=== PATIENT | male | born 1975 | race Caucasian/White ===

== ENCOUNTER 2016-08-23 11:56 | Emergency (ER) | payer BC ==
[~2016-08-23] VITALS: Ht 180.3 cm; Wt 89.2 kg
[~2016-08-23 11:56] MED LIST: IBUP-238 PO; LEVEMIR SQ; NOVORP2 SQ; OCUF0.3D OS
[2016-08-23 11:59] VITALS: BP 133/78; PULSE 89; RESP 16; TEMP 98.8; O2SAT 98
[2016-08-23] MEDS ORDERED: INSU100V2 SQ (12:08)
[2016-08-23] MEDS ORDERED: AMOX875T2 PO (12:08)
[2016-08-23] MEDS ORDERED: OCUF0.3D EACH EAR (12:26)
[2016-08-23] MEDS ORDERED: OFLOXACIN 0.3% OPTH SOLN 5 ML BTL EACH EAR SCH (12:30)
--- NOTE | 2016-08-23 12:36 | PD ---
HPI Chief Complaint: ENT Complaint Time Seen by Provider: 12:25 Travel History International Travel<30 days: No Contact w/Intl Traveler<30days: No Traveled to known affect area: No History of Present Illness HPI 41 year-old male presents to the emergency room for evaluation of bilateral ear pain, left worse than right. Patient states pain started 5 days ago. Reports ear swelling and decreased hearing but denies drainage. He went to his primary care physician yesterday and was prescribed Augmentin for a "upper respiratory infection" but states it seems to be worse since then. He denies any associated upper respiratory symptoms. Patient reports associated chills and night sweats off-and-on for the past 3 days. He has been taking ibuprofen for pain and fever. Denies recent swimming. PFSH Past Medical History Hx Anticoagulant Therapy: Yes (81 MG ASA) Cancer: No Cardiovascular Problems: No High Cholesterol: Yes Chest Pain: Yes Diabetes: Yes (TYPE 1 ) Patient Takes Glucophage: No Diminished Hearing: No Endocrine: Yes Gastrointestinal Disorders: No Genitourinary: No Immune Disorder: No Inguinal Hernia: Yes Implanted Vascular Access Dvce: No Medical other: Yes (NARCOLEPSY) Musculoskeletal: No Neurologic: Yes Reproductive: No Respiratory: No Past Surgical History Other Surgery: Yes Social History Alcohol Use: Yes (rarely) Tobacco Use: Yes (1 ppd) Substance Use: No Allergies-Medications (Allergen,Severity, Reaction): Coded Allergies: No Known Allergies (Verified , 08/23/16) Reported Meds & Prescriptions Reported Meds & Active Scripts Active Reported Amoxicillin-Clavulanate 875-125 mg Tab 875 Mg PO BID not for use in CrCl <30 mL/minute Humulin R Inj (Insulin Human Regular) 1,000 Unit/10 Ml Vial 1 Units SQ ONCE Review of Systems Except as stated in HPI: all other systems reviewed are Neg Physical Exam Narrative GENERAL: Well-nourished, well-developed male in no acute distress. Afebrile. Ambulatory. SKIN: Warm and dry. HEAD: Normocephalic. EYES: No scleral icterus. No injection or drainage. NECK: Supple, trachea midline. No JVD or lymphadenopathy. EARS: Bilateral pinnae within normal limits. Bilateral external ear canals are erythematous and occluded with purulent drainage. Tympanic membranes not visible. Data Data Last Documented VS Vital Signs Date Time Temp Pulse Resp B/P Pulse Ox O2 Delivery O2 Flow Rate FiO2 08/23/16 11:59 98.8 89 16 133/78 98 Orders Ofloxacin 0.3% Opth Nickyn (Ocuflox 0.3% O (08/23/16 12:30) [facility] Medical Decision Making Medical Screen Exam Complete: Yes Emergency Medical Condition: Yes Medical Record Reviewed: Yes Differential Diagnosis Otitis media versus otitis externa versus eustachian tube dysfunction Narrative Course 41-year-old male presents to the emergency room for evaluation of bilateral ear pain and swelling that started last night. Patient has had ear pain for 5 days. Went to his primary care physician and was diagnosed with upper respiratory infection and given prescription of Augmentin. He has had 2 doses and feels worse today. Denies ear drainage or recent swimming. Physical exam reveals bilateral external ear canals are erythematous and occluded with purulent drainage. Tympanic membranes not visible. Some drainage was removed and ear kit were placed. Patient given his first dose of medication in the emergency room to assist with retaining kit. Discharged with prescription for ofloxacin and told to follow up with primary care physician or ENT if symptoms persist or return to the emergency room for worsening symptoms. He understands and agrees to plan. Diagnosis Primary Impression: OE (otitis externa) Qualified Code: H60.393 - Other infective acute otitis externa of both ears Referrals: Primary Care Physician Patient Instructions: General Instructions, Otitis Externa (ED) Additional Instructions: Rest and drink plenty of fluids. Use ofloxacin as directed, for 7 days. Ibuprofen as directed, as needed for pain. Kit should be replaced every 1-3 days if significant swelling persists. They can be purchased [id number]. The ear should be protected from water during showers during recovery from external otitis. No swimming. Follow-up with primary care physician and/or ENT. Return for worsening symptoms. Deanna Monet Aug 23, 2016 12:36
== END 2016-08-23 13:07 | disposition home or self-care (01) ==
LOC: PHEFT 11:56
DX: H60.93 Unspecified otitis externa, bilateral (principal); E10.9 Type 1 diabetes mellitus without complications; F17.210 Nicotine dependence, cigarettes, uncomplicated; Z79.82 Long term (current) use of aspirin; E78.00 Pure hypercholesterolemia, unspecified; Z79.4 Long term (current) use of insulin
CPT/HCPCS: 99283

== ENCOUNTER 2016-10-31 22:42 | Emergency (ER) | payer BC ==
[~2016-10-31] VITALS: Ht 180.3 cm; Wt 91.6 kg
[~2016-10-31 22:42] MED LIST changes: +AMOX875T2 PO; -IBUP-238 PO; +INSU100V2 SQ; -LEVEMIR SQ; -NOVORP2 SQ; +OCUF0.3D EACH EAR; -OCUF0.3D OS
[2016-10-31 22:49] VITALS: BP 125/85; PULSE 98; RESP 20; TEMP 98.9; O2SAT 97
[2016-10-31] MEDS ORDERED: IBUP800T23 PO (23:12)
[2016-10-31] MEDS ORDERED: CYCL5TAB PO (23:12)
[2016-10-31] MEDS ORDERED: oxyCODONE/ACETAMINOPHEN 5 MG/325 MG TAB PO ONE (23:15)
--- NOTE | 2016-10-31 23:17 | PD ---
HPI Chief Complaint: Musculoskeletal Complaint Time Seen by Provider: 23:02 Travel History International Travel<30 days: No Contact w/Intl Traveler<30days: No Traveled to known affect area: No History of Present Illness HPI This 41-year-old male is complaining of back pain. He says he been having back pain for several months but seems worse last week. Pain does go down his legs at times, gone down both sides. He had a back injury at the age of 15 but nothing recently. He has a history of diabetes for the last 3 years and does have some neuropathy. Pain is aggravated by standing. PFSH Past Medical History Hx Anticoagulant Therapy: Yes (81 MG ASA) Cancer: No Cardiovascular Problems: No High Cholesterol: Yes Chest Pain: Yes Diabetes: Yes (TYPE 1 ) Diminished Hearing: No Endocrine: Yes Gastrointestinal Disorders: No Genitourinary: No Immune Disorder: No Inguinal Hernia: Yes Implanted Vascular Access Dvce: No Musculoskeletal: No Neurologic: Yes Reproductive: No Respiratory: No ?: Not Past Surgical History Other Surgery: Yes Social History Alcohol Use: Yes (rarely) Tobacco Use: Yes (1 ppd) Substance Use: No Allergies-Medications (Allergen,Severity, Reaction): Coded Allergies: No Known Allergies (Verified , 10/31/16) Reported Meds & Prescriptions Reported Meds & Active Scripts Active Flexeril (Cyclobenzaprine HCl) 10 Mg Tab 10 Mg PO TID Reported Flexeril (Cyclobenzaprine HCl) 5 Mg Tab 5 Mg PO TID Ibuprofen 800 Mg Tab 800 Mg PO Q6HR PRN Humulin R Inj (Insulin Human Regular) 1,000 Unit/10 Ml Vial 1 Units SQ ONCE Review of Systems General / Constitutional: No: Fever, Chills Eyes: No: Diploplia, Blurred Vision HENT: No: Headaches, Vertigo Cardiovascular: No: Chest Pain or Discomfort, Palpitations Respiratory: No: Cough Gastrointestinal: No: Nausea, Vomiting Genitourinary: No: Urgency, Frequency Musculoskeletal: Positive: Myalgias, Pain Skin: No Rash, No Itching Neurologic: Positive: Weakness, No: Dizziness Psychiatric: No: Anxiety Physical Exam Narrative GENERAL: Well-developed male SKIN: Warm and dry. HEAD: Atraumatic. Normocephalic. EYES: Pupils equal and round. No scleral icterus. No injection or drainage. ENT: No nasal bleeding or discharge. Mucous membranes pink and moist. NECK: Trachea midline. No JVD. CARDIOVASCULAR: Regular rate and rhythm. No murmur appreciated. RESPIRATORY: No accessory muscle use. Clear to auscultation. Breath sounds equal bilaterally. GASTROINTESTINAL: Abdomen soft, non-tender, nondistended. Hepatic and splenic margins not palpable. MUSCULOSKELETAL: No obvious deformities. No clubbing. No cyanosis. No edema. Does have some tenderness in the low back in the midline. Straight leg raising is painful bilaterally. He does have good strength in plantar and dorsiflexion. Sensation appears grossly intact NEUROLOGICAL: Awake and alert. No obvious cranial nerve deficits. Motor grossly within normal limits. Normal speech. PSYCHIATRIC: Appropriate mood and affect; insight and judgment normal. Data Data Last Documented VS Vital Signs Date Time Temp Pulse Resp B/P Pulse Ox O2 Delivery O2 Flow Rate FiO2 10/31/16 22:49 98.9 98 20 125/[address] Lumb Spine W/O Contrast (10/31/16 23:14) Oxycodone-Acetamin 5-325 Mg (Percocet (10/31/16 23:15) MDM Medical Decision Making Medical Screen Exam Complete: Yes Emergency Medical Condition: Yes Medical Record Reviewed: Yes Differential Diagnosis Differential includes spinal stenosis, HNP, musculoskeletal pain Narrative Course CT scan was obtained and the bones appear normal. There is no evidence of infection. Patient will be released with a prescription for Flexeri Diagnosis Primary Impression: Back pain Scripts Cyclobenzaprine (Flexeril)10 Mg Tab10 Mg PO TID #30 TAB Ref 0 Prov:Damian Lei MD 10/31/16 Disposition: DISCHARGE HOME Condition: Stable Damian Lei MD Oct 31, 2016 23:17
[2016-10-31] MEDS ORDERED: CYCL1TAB29 PO (23:50)
--- NOTE | 2016-11-01 00:16 | RADHPO ---
EXAM DATE/TIME: 10/31/2016 23:25 [facility] COMPARISON: No previous studies available for comparison. INDICATIONS : Lower back pain for several months. RADIATION DOSE: 38.24 CTDIvol (mGy) MEDICAL HISTORY : Hernia, inguinal. Diabetes mellitus type 1. SURGICAL HISTORY : None. ENCOUNTER: Initial ACUITY: 3 months PAIN SCALE: 6/10 LOCATION: lower back. TECHNIQUE: Volumetric scanning of the lumbar spine was performed. Multiplanar reconstructions in the sagittal, coronal and oblique axial planes were performed. Using automated exposure control and adjustment of the mA and/or kV according to patient size, radiation dose was kept as low as reasonably achievable t o obtain optimal diagnostic quality images. FINDINGS: VERTEBRAE: Normal vertebral body height. ALIGNMENT: No evidence of subluxation. T12-L1: The thecal sac has a normal diameter. No evidence of disc bulge or protrusion. The neural foramina are patent bilaterally. L1-L2: The thecal sac has a normal diameter. No evidence of disc bulge or protrusion. The neural foramina are patent bilaterally. L2-L3: The thecal sac has a normal diameter. No evidence of disc bulge or protrusion. The neural foramina are patent bilaterally. L3-L4: The thecal sac has a normal diameter. No evidence of disc bulge or protrusion. The neural foramina are patent bilaterally. L4-L5: There is a mild broad-based disc bulge. Central canal, lateral recesses, and neural foramen are paten t. L5-S1: The thecal sac has a normal diameter. No evidence of disc bulge or protrusion. The neural foramina are patent bilaterally. CONCLUSION: 1. No acute abnormality. 2. Mild degenerative disc disease at L4-L5 without neural impingement. Josue Egan Jr., MD on November 01, 2016 at 0:12 Board Certified Radiologist. This report was verified electronically.
[2016-11-01 00:40] VITALS: BP_SYST 169
== END 2016-11-01 00:42 | disposition home or self-care (01) ==
LOC: PHED 22:42
DX: M54.9 Dorsalgia, unspecified (principal); E10.9 Type 1 diabetes mellitus without complications; F17.210 Nicotine dependence, cigarettes, uncomplicated; Z79.4 Long term (current) use of insulin
CPT/HCPCS: 72131